=== PATIENT | female | born 1935 | race Caucasian/White ===

== ENCOUNTER → 2016-08-19 | Outpatient (REF) | payer MEDICARE ==
[~2016-08-19] MED LIST: AC325T PO; ALLO300T2 PO; ASCO10006 PO; ASP81CT PO; ATEN100T13 PO; ATOR20TA PO; CA C1TAB70 PO; CHOL200014 PO; DICL100G13 TOP; DOCU-243 PO; GLUC-158 PO; HYDR-33; LISI1TAB10 PO; LTN005OP2 OU; MAGN400O7 PO; METF500T4 PO; MULT-1034 PO; OMEG1CAP72 PO; ONDA4TAB8 PO; ONDAN4ODT PO; OXYC1TAB8 PO; OXYQ113.2 VG; PANT40TA3 PO; POLY17PO2 PO; POTA10TA10 PO; PRAV80TA2 PO; PROM25TA14 PO; TIMO15DR11 OU; VITA200T5 PO; ZLP10T PO
[2016-08-19 14:14] LABS: ANION GAP 15.8 MEQ/L (3-15)
== END ==
LOC: LAB 13:28
PROVIDERS: ATTEND Family Medicine
DX: R73.02 Impaired glucose tolerance (oral) (principal); I10 Essential (primary) hypertension
CPT/HCPCS: 80048; 83036